=== PATIENT | male | born 1960 | race Caucasian/White ===

== ENCOUNTER 2024-01-14 18:16 | Emergency (ER) | payer MEDICARE, SELFPAY ==
[2024-01-14] VITALS (20 sets, daily range): BP systolic 123–164; BP diastolic 72–134; PULSE 106–137; RESP 16–18; TEMP 37.4; O2SAT 96–98
--- NOTE | ~2024-01-14 | XR_ITS ---
EXAMINATION: XR chest 1V portable DATE: 01/14/2024 18:44 INDICATION: Chest pain. TECHNIQUE: A single frontal view of the chest was obtained. COMPARISON: Chest 2 views 05/17/2014 FINDINGS: There is mild scarring in the upper lobes. No pleural effusion or pneumothorax. The heart s ize is normal. Calcified hilar and mediastinal lymph nodes are consistent with old granulomatous dise ase. IMPRESSION: 1. Stable scarring in the upper lobes. Reviewed, dictated and finalized at location A.
--- NOTE | ~2024-01-14 | CT_ITS ---
EXAMINATION: CT brain wo con DATE: 01/14/2024 18:44 INDICATION: Altered mental status. Headache. TECHNIQUE: Computed tomography (CT) of the head was performed without intravenous contrast. The mA wa s adjusted according to patient size. Iterative reconstruction technique was employed. The dose-lengt h product was 681.00 mGy-cm. COMPARISON: None FINDINGS: There is no intracranial hemorrhage, acute infarction, or abnormal intracranial mass lesion . The ventricles are normal in size. There is mild mucosal thickening in the paranasal sinuses. There is a trace left mastoid effusion. The orbits are normal. IMPRESSION: 1. Normal brain. Reviewed, dictated and finalized at location A. IMPRESSION: 1. Normal brain.
--- NOTE | 2024-01-14 18:22 | ECG_ITS ---
Test Date: 2024-01-14 18:29:05 Measurements Intervals [place] Rate: 127 P: 38 LA: 128 QRS: 14 QRSD: 89 T: 47 QT: 335 QTc: 488 Interpretive Statements SINUS TACHYCARDIA CONSIDER INFERIOR INFARCT, AGE INDETERMINATE BASELINE ARTIFACT- I, II, III, AVR, AVL, AVF, V1-V2 ABNORMAL ECG No previous ECG available for comparison Electronically Signed On 01-16-2024 08:06:34 CDT by Moustapha Rice D.O.
--- NOTE | 2024-01-14 18:27 | ED.AMS ---
HPI - Altered Mental Status General Chief Complaint: Chest Pain Stated Complaint: chest pain Time Seen by Provider: 01/14/24 18:20 Source: patient and family Mode of arrival: ambulatory Limitations: no limitations History of Present Illness HPI narrative: Patient is a 63-year-old male who pride his bike everywhere and he was out in the heat today. Family is present and said he is disabled typically and acts normally baseline as a child mentally. They said at this time though he is being more lethargic and not talking as much. Family feels that he got overheated today. Patient has been hallucinating and feels that he sees his mother. That is making him sad at times. MD complaint: altered mental status and confusion Onset (ago): day(s) (1) Timing confirmed by: family member Severity: mild Consistency of symptoms: constant Associated symptoms: chest pain Related Data Home Medications Medication Instructions Recorded Confirmed No Home Medications 01/14/24 01/14/24 Allergies Allergy/AdvReac Type Severity Reaction Status Date / Time No Known Allergies Allergy Verified 01/14/24 19:10 Review of Systems Review of Systems: All systems reviewed & are unremarkable except as noted in HPI and below Constitutional: Constitutional: Reports no additional constitutional complaints Eyes: Eyes: Reports no additional eye complaints ENT: Reports system reviewed and no additional complaints, except as documented Cardiovascular: Cardiovascular: Reports no additional cardiovascular complaints Respiratory: Respiratory: Reports no additional respiratory complaints Gastrointestinal: Gastrointestinal: Reports no additional gastrointestinal complaints Genitourinary: Genitourinary: Reports no additional male genitourinary complaints Musculoskeletal: Musculoskeletal: Reports no additional musculoskeletal complaints Integumentary/Breasts: Skin/Breast: Reports system reviewed and no additional complaints, except as docu Neurologic: Reports system reviewed and no additional complaints, except as documented Psychiatric: Psychiatric: Reports no additional psychiatric complaints Endocrine: Endocrine: Reports no additional endocrine complaints Hematologic/Lymphatic: Hematologic/Lymphatic: Reports no additional hematologic/lymphatic complaints Allergic/Immunologic: Allergic/Immunologic: Reports no additional allergic/immunologic complaints Exam Const: General: healthy appearing Nutritional Appearance: thin Limitations: altered mental status HENMT: Head: normal to inspection Ears: external ears normal Face/Nose/Sinus: Normal external nose present Eyes: Conjunctivae: conjunctivae normal Pupils: Equal, round and reactive pupils present EOM: EOMs intact bilaterally Neck: Neck: normal visual inspection Chest: Chest palpation & inspection: normal inspection of the chest Resp: Effort & Inspection: normal respiratory effort and not labored Auscultation: clear to auscultation bilaterally and no crackles Cardio: Rate: tachycardic Rhythm: regular rhythm Heart sounds: no murmurs GI: Inspection: non-distended GI Palp: Yes Soft to palpation and No Tenderness to palpation present (GI) Auscultation: normal bowel sounds : General: Yes bladder normal to palpation Back/Spine/Pelvis: Back: no CVA tenderness Skin: General skin exam: normal color Rashes: no rashes Wounds: no wounds Neuro: General: moves all extremities, no meningeal signs, no focal motor deficits and CN's II-XI intact bilaterally Cranial nerves: Yes Nystagmus not present Speech: normal speech Gait exam (Neuro): Normal gait present Other: patient is somewhat confused but pleasant Extrem: General: normal to inspection Psych: Mental Status: mental status grossly normal Affect: normal affect Attitude: cooperative Other: Occasional hallucination visually of his mother Course Vital Signs Vital signs: Vital Signs Tem
[2024-01-14 18:35] LABS: Basophils Absolute Auto 0.08 K/mm3 (0.00-0.10); Basophils Percent Auto 0.8 % (0.0-1.0); Eosinophils Absolute Auto 0.02 K/mm3 (0.02-0.50); Eosinophils Percent Auto 0.2 % (1.0-6.0); Hemoglobin 14.2 g/dL (14.0-18.0); Immature Granulocyte Absolute 0.03 K/mm3 (0.00-0.00); Immature Granulocyte Percent A 0.3 % (0.0-0.0); Lymphocytes Absolute Auto 1.33 K/mm3 (1.10-4.50); Lymphocytes Percent Auto 13.5 % (18.0-42.0); Mean Corpuscular Hemoglobin 30.9 pg (27.0-31.0); Mean Corpuscular Volume 93.5 fL (78.0-102.0); Monocytes Absolute Auto 0.71 K/mm3 (0.10-0.90); Monocytes Percent Auto 7.2 % (2.0-11.0); Neutrophils Absolute Auto 7.65 K/mm3 (1.70-7.20); Platelet Count Result 216 K/mm3 (150-420); Red Cell Distribution Width 12.9 % (11.6-14.4); White Blood Count 9.8 K/mm3 (4.8-10.8)
[2024-01-14] MEDS: SODIUM CHLORIDE 0.9% IV 1,000 ML 999 ML IV CONT ×2 (18:41→19:47)
--- NOTE | 2024-01-14 18:49 | PC.NURSE ---
report to bibi cruz.
[2024-01-14 18:51] LABS: Lactic Acid Reflex 2.5 mmol/L (0.4-2.0)
--- NOTE | 2024-01-14 18:53 | PC.NURSE ---
assumed care. patient report received from Rommel MCGARRY.
[2024-01-14 18:54] LABS: Alanine Aminotransferase 22 U/L (16-63); Albumin Level 3.8 g/dL (3.4-5.0); Alkaline Phosphatase 137 U/L (46-116); Anion Gap 6 mmol/L (4-12); Aspartate Amino Transferase 21 U/L (15-37); Bilirubin,Total 0.6 mg/dL (0.00-1.00); Blood Urea Nitrogen 12 mg/dL (7-18); Carbon Dioxide 30 mmol/L (21-32); Chloride 99 mmol/L (98-108); Creatine Kinase 70 U/L (39-308); Estimated CRCL calculation 54 ml/min; Estimated Glomerular Filt Rate > 60; Glucose 145 mg/dL (70-99); Magnesium 1.6 mg/dL (1.8-2.4); NT Pro B Type Natriuretic Pept 49 pg/mL (0-125); Osmolality Calculated 282 mOsm/kg (285-295); Sodium 135 mmol/L (136-145); Total Protein 8.1 g/dL (6.4-8.2)
[2024-01-14 18:55] LABS: Ethanol < 3 mg/dL (0-6); Troponin I < 4.0 ng/L (0.00-60.4)
[2024-01-14 18:59] LABS: Glucose Point of Care 126 mg/dl (65-105)
[2024-01-14] MEDS: Please add drug allergy info to patient profile. 1 EACH XX (19:12)
[2024-01-14] MEDS: MAGNESIUM SULF 2 GM/WATER 50ML 2 GM/50 ML BAG IVPB (19:18)
--- NOTE | 2024-01-14 19:25 | PC.NURSE ---
resting on stretcher with family at the bedside. denies any needs at this time. call light in reach
--- NOTE | 2024-01-14 19:49 | PC.NURSE ---
urinal was given to patient. family remains at the bedside.
--- NOTE | 2024-01-14 19:57 | PC.NURSE ---
family reports that patient appears to be back at baseline. other than being tired. patient is resting quietly on stretcher. call light is in reach. no needs voiced. denies chest pain.
--- NOTE | 2024-01-14 20:31 | PC.NURSE ---
resting on stretcher wth family at his side. does not have to urinate at this time. dr bellamy aware.
--- NOTE | 2024-01-14 21:15 | PC.NURSE ---
urine sample taken down to lab and given to lola
[2024-01-14 21:19] LABS: Add Urine Microscopic? YES; Appearance Urine Clear (Clear); Bilirubin Urine Negative (Negative); Blood Urine Negative (Negative); Color Urine Yellow (Yellow); Glucose Urine UA Negative (Negative); Ketones Urine Negative (Negative); Leukocyte Esterase Ur Negative LEU/UL (Negative); Nitrate Urine Negative (Negative); Protein Urine Negative (Negative); Specific Grav Ur 1.025 (1.010-1.020)
--- NOTE | 2024-01-14 21:20 | ECG_ITS ---
Test Date: 2024-01-14 21:34:09 Measurements Intervals [place] Rate: 110 P: 36 [place]: 163 QRS: 2 QRSD: 93 T: 8 QT: 325 QTc: 441 Interpretive Statements SINUS TACHYCARDIA POSSIBLE LEFT ATRIAL ENLARGEMENT CONSIDER INFERIOR INFARCT, AGE INDETERMINATE BASELINE ARTIFACT- I, III, AVR, AVL, AVF, V1-V2 ABNORMAL ECG Compared to ECG 01/14/2024 18:29:05 No significant changes Electronically Signed On 01-16-2024 08:07:16 CDT by Moustapha Rice D.O.
[2024-01-14 21:24] LABS: RBC Urine 0-2 /hpf (0-2); WBC Urine 0-3 /hpf (0-3)
[2024-01-14 21:25] LABS: Bacteria Urine Trace /hpf
[2024-01-14 21:27] LABS: Amphetamine Screen Urine Negative (Negative); Barbiturate Screen Urine Negative (Negative); Benzodiazepines Screen Urine Negative (Negative); Cannabinoid Screen Urine Negative (Negative); Cocaine Screen Urine Negative (Negative); Methadone Screen Urine Negative (Negative); Opiate Screen Urine Negative (Negative); Phencyclidine Screen Urine Negative (Negative)
--- NOTE | 2024-01-14 21:27 | PC.NURSE ---
lab at the bedside
--- NOTE | 2024-01-14 21:28 | PC.NURSE ---
sarah cruz, completing ekg
[2024-01-14 21:31] LABS: Reflex Lactic Acid Yes or No Add Lactic
[2024-01-14 21:51] LABS: Lactic Acid 1.2 mmol/L (0.4-2.0); Troponin I 6.4 ng/L (0.00-60.4)
--- NOTE | 2024-01-14 22:17 | PC.NURSE ---
patient resting on stretcher. family left to get some food. patient waiting for them to bring him a hamburger. offered patient food. does not want hospital food at this time.
--- NOTE | 2024-01-14 22:32 | PC.NURSE ---
family is back at the bedside. patient is eating a hamburger with family
--- NOTE | 2024-01-14 22:42 | PC.NURSE ---
ambulated to the bathroom and back to room without difficulty. Dr Ennis notified.
== END 2024-01-14 22:51 | disposition home or self-care (01) ==
PROVIDERS: Emergency Provider Emergency Medicine; PCP Family Medicine
DX: R07.89 Other chest pain (principal); E86.0 Dehydration
CPT/HCPCS: 36415; 70450; 71045; 80053; 80307; 81001; 82550; 82948; 83605; 83735; 83880; 84484; 85025; 93005; 96361; 96365; 96366; 99284; J3475; J7030